=== PATIENT | male | born 1955 | race Caucasian/White ===

== ENCOUNTER 2019-07-27 11:04 | Day surgery (SDC) | payer OTHER, MEDICARE ==
[2019-07-26 16:12] VITALS: BMI 25.5
[2019-07-27 12:54] VITALS: TEMP 97.4
[2019-07-27 13:18] VITALS: BP 114/55; PULSE 76
--- NOTE | 2019-07-30 16:48 | PATH ---
Surgical Pathology Report Patient Name: RADHA RODRIGUEZ [facility] [place]. Rec. #: [id number] /Age/Gender: 1955 (Age: 63) / M Account: [id number] Location: U-ENDOSCOPY Taken: 07/27/2019 Received: 07/27/2019 Reported: 07/30/2019 Physicians: Kashif Villareal M.D. Specimen(s) Received A: DUODENUM B: STOMACH C: ESOPHAGUS Clinical History Abdominal pain Postoperative diagnosis: Duodenitis, gastritis Final Diagnosis A. DUODENUM, BIOPSY: DUODENAL MUCOSA WITH ACUTE AND CHRONIC DUODENITIS. B. STOMACH, BIOPSY: GASTRIC MUCOSA WITH ACUTE AND CHRONIC GASTRITIS. IMMUNOSTAIN FOR H. PYLORI IS NEGATIVE. NEGATIVE FOR INTESTINAL METAPLASIA. C. ESOPHAGUS, BIOPSY: GASTROESOPHAGEAL JUNCTIONAL MUCOSA WITH CHANGES CONSISTENT WITH REFLUX ESOPHAGITIS. NEGATIVE FOR INTESTINAL METAPLASIA. Electronically Signed Vandana Nieto M.D. Gross Description A. Received in formalin, labeled "biopsy duodenum" are 4 whitfield, irregular portions of soft tissue ranging from 0.1-0.2 cm. in greatest dimension. The specimens are submitted in toto in one cassette. B. Received in formalin, labeled "biopsy stomach" are 3 whitfield, irregular portions of soft tissue ranging from 0.3-0.4 cm. in greatest dimension. The specimens are submitted in toto in one cassette. C. Received in formalin, labeled "biopsy esophagus" is a whitfield, irregular portion of soft tissue measuring 0.5 cm. in greatest dimension. The specimen is submitted in toto in one cassette. 07/27/2019 saudi07/27/2019
== END 2019-07-27 13:30 | disposition home or self-care (01) ==
LOC: EDBD 11:04 → JASU-ENDO 11:04
PROVIDERS: ATTEND Internal Medicine Gastroenterology
PROC: 0DB78ZX Excision of Stomach, Pylorus, Via Natural or Artificial Opening Endoscopic, Diagnostic (ICD-10-PCS; 2019-07-27)
PROC: 0DB68ZX Excision of Stomach, Via Natural or Artificial Opening Endoscopic, Diagnostic (ICD-10-PCS; 2019-07-27)
PROC: 0DB48ZX Excision of Esophagogastric Junction, Via Natural or Artificial Opening Endoscopic, Diagnostic (ICD-10-PCS; 2019-07-27)
PROC: 0DB98ZX Excision of Duodenum, Via Natural or Artificial Opening Endoscopic, Diagnostic (ICD-10-PCS; principal; 2019-07-27 13:00)
DX: K29.80 Duodenitis without bleeding (principal); K29.50 Unspecified chronic gastritis without bleeding; K21.0 Gastro-esophageal reflux disease with esophagitis; R10.13 Epigastric pain
CPT/HCPCS: 88305-TC; 88342-TC